=== PATIENT | female | born 1985 | race Caucasian/White ===

== ENCOUNTER 2016-09-22 16:44 | Emergency (ER) | payer SELFPAY ==
[~2016-09-22 16:44] MED LIST: Sodium Chloride 0.9% 1,000 ML BAG ONE
[2016-09-22 17:12] LABS: Blood, Urine Negative (Negative); Clarity Slightly Cloudy (Clear); Glucose, Urine (Dipstick) Negative (Negative); Leukocyte Negative (Negative); Nitrite Negative (Negative); Protein, Urine (Dipstick) Trace mg/dL (Neg-Trace)
[2016-09-22 17:13] LABS: Bilirubin Moderate (Negative); Icto Negative (Negative)
[2016-09-22] MEDS ORDERED: Promethazine HCl 25 MG/ML VIAL ONE (17:16)
[2016-09-22 17:41] LABS: Pregnancy Test - Urine (BHCG) NEGATIVE (NEGATIVE); Pregu Control Bar Appear? YES (CONTROL BAR)
[2016-09-22 17:55] LABS: #Basophils 0.1 thou/uL (0.0-0.2); #Eosinphils 0.1 thou/uL (0.0-0.7); #Lymphocytes 2.2 thou/uL (1.20-3.40); #Monocytes 0.4 thou/uL (0.11-0.59); %Basophils 1.1 % (0.0-1.0); %Eosinophils 0.8 % (0.0-10.0); %Lymphocytes 24.7 % (21.0-51.0); %Monocytes 4.5 % (0.0-10.0); Hemoglobin 15.4 g/dL (12.0-16.0); Mean Corpuscular HGB CONC 33.3 g/dL (32.0-36.0); Mean Corpuscular Hemoglobin 33.9 pg (27.0-31.0); Mean Corpuscular Volume 101.5 fl (81.0-99.0); Mean Platelet Volume 7.9 fL (7.4-10.4); Platelet Count 332 thou/uL (130-400); RBC Distribution Width 12.1 % (11.5-14.5); Red Blood Cell (RBC) Count 4.56 mill/uL (4.20-5.40); White Blood Cell (WBC) Count 8.7 thou/uL (4.8-10.8)
[2016-09-22 18:09] LABS: ALT (SGPT) 24 U/L (0-55); AST (SGOT) 18 U/L (5-34); Albumin 4.7 g/dL (3.5-5.0); Alkaline Phosphatase 79 U/L (40-150); Anion Gap 16 mmol/L (10-20); BUN (Urea Nitrogen) 13 mg/dL (7.0-18.7); Bilirubin, Total 1.2 mg/dL (0.2-1.2); Calc. Creatinine Clearance 0 mL/min (70-130); Carbon Dioxide 24 mmol/L (22-29); Chloride 102 mmol/L (98-107); Estimated GFR-MDRD 89; Globulin 2.9 g/dL (2.4-3.5); Glucose 81 mg/dL (70-105); Lipase 30 U/L (8-78); Potassium 3.9 mmol/L (3.5-5.1); Protein, Total 7.6 g/dL (6.0-8.3); Sodium 138 mmol/L (136-145)
== END 2016-09-22 18:22 | disposition home or self-care (01) ==
LOC: MADERS 16:44
DX: K52.9 Noninfective gastroenteritis and colitis, unspecified (principal); F17.210 Nicotine dependence, cigarettes, uncomplicated
CPT/HCPCS: 80053; 81003; 81025; 83690; 85025; 96360; 96372; J2550; J7050

== ENCOUNTER 2017-07-18 11:55 | Emergency (ER) | payer SELFPAY ==
[2017-07-18] MEDS ORDERED: HYDROcodone/Acetaminophen 10/325 mg Tablet ONE (12:28)
[2017-07-18] MEDS ORDERED: Cephalexin 500 MG CAP ONE (12:28)
[2017-07-18] MEDS ORDERED: Naproxen 500 MG TAB ONE (12:28)
[2017-07-18] MEDS ORDERED: Adacel (T-DAP) 0.5 ML VIAL ONE (12:29)
--- NOTE | 2017-07-18 14:14 | RAD ---
3 VIEWS RIGHT FOOT: Date: 07/18/17 HISTORY: Foreign body in sole of foot. FINDINGS: There is no evidence of a fracture or dislocation. Lisfranc joint is normally aligned. No radiopaque foreign body is identified. IMPRESSION: No radiopaque foreign body is seen, and there is no acute osseous abnormality involving the right yonas t. POS: [facility]
== END 2017-07-18 13:05 | disposition home or self-care (01) ==
LOC: MADERS 11:55
DX: L84 Corns and callosities (principal); F17.210 Nicotine dependence, cigarettes, uncomplicated
CPT/HCPCS: 90471; 90715

== ENCOUNTER 2017-07-23 19:19 | Emergency (ER) | payer SELFPAY ==
[~2017-07-23 19:19] MED LIST changes: -Sodium Chloride 0.9% 1,000 ML BAG ONE; +Sterile Water Irrigation 250 ML BOT ONE
[2017-07-23] MEDS ORDERED: MORPHINE 10 MG/ML SYRINGE ONE (20:13)
[2017-07-23] MEDS ORDERED: Lidocaine 2% w/Epinephrine 1:200K 20 ML VIAL ONE (20:13)
[2017-07-23] MEDS ORDERED: Ondansetron ODT 4 MG TAB ONE (20:13)
[2017-07-23] MEDS ORDERED: Sulfameth/Trimethoprim DS 800-160mg TAB ONE ×2 (21:09→21:10)
== END 2017-07-23 21:17 | disposition home or self-care (01) ==
LOC: MADERS 19:19
DX: L02.611 Cutaneous abscess of right foot (principal); L03.115 Cellulitis of right lower limb; F17.210 Nicotine dependence, cigarettes, uncomplicated
CPT/HCPCS: 10060; 87070; 87077; 87186; 87205; 96372; 99283; J2270; Q0162